=== PATIENT | male | born 1995 | race Caucasian/White ===

== ENCOUNTER 2016-05-05 14:48 | Emergency (ER) | payer SELFPAY ==
[~2016-05-05] VITALS: Ht 188 cm; Wt 81.1 kg
[2016-05-05 14:51] VITALS: TEMP 37; Ht 188 cm; Wt 81.1 kg
[2016-05-05] MEDS ORDERED: XYLOCAINE 1%/SOD BICARB 20 ML VIAL INFIL ONE (15:15)
--- NOTE | 2016-05-05 15:36 | DIAGNOSTIC IMAGING REPORT ---
RIGHT HAND 3 VIEWS CLINICAL HISTORY: Right hand injury involving the third and fourth fingers. FINDINGS: 3 views of the right hand are obtained. No prior studies are available for comparison at the time of dictation. The skeletal structures are well mineralized. No fracture is seen. The joint spaces of the hand are well-maintained. Mild dorsal soft tissue swelling is seen at the level of the metacarpal heads. IMPRESSION: Mild dorsal soft tissue swelling with no acute bony abnormality identified. Electronically signed by: Timothy Kahn M.D. 05/05/2016 3:35 PM Dictated Date/Time: 05/05/2016 3:33 PM
[2016-05-05] MEDS ORDERED: CEPH500C PO (16:14)
[2016-05-05] MEDS ORDERED: DIPHTHERIA/TETANUS/PERTUSSIS 0.5 ML SYR/VIAL IM. ONE (16:15)
[2016-05-05 16:39] VITALS: BP 118/72; PULSE 63; O2SAT 99
--- NOTE | 2016-05-05 17:10 | EMERGENCY ROOM VISIT NOTE ---
ED Visit Note First contact with patient: 15:04 Chief complaint: Right long finger laceration HPI: This 21-year-old white male presents for evaluation of lacerations of his right long finger. The patient was helping to connect a trailer hitch and got his hand caught between 2 pieces of metal. He states he was pinned there for almost a half an hour. They had to get a hacksaw to cut the metal to release his hand. Bleeding was controlled with pressure. He has pain in his long and ring fingers. Only the long finger has lacerations. They deny any numbness, tingling, or loss of motion. No other complaints. Tetanus is believed to be out of-date. Pain is 8/10. Right-hand dominant. Supplemental sheet was reviewed and signed. Previous surgeries: None Medical history: Significant for history of Lyme disease Current Medications: None Allergies: NKDA Tetanus: Greater than 9 years Family History: Significant for diabetes, hypertension, kidney stones, and seizures Social History: Unemployed. Lives with his father. Positive tobacco use, positive EtOH use. REVIEW OF SYSTEM: HEENT: No dizziness, visual problems, hearing loss, or tinnitus. There is no difficulty swallowing and no oral lesions are present. PULMONARY: No cough, shortness of breath, sputum production or hemoptysis. CARDIOVASCULAR: No chest pain, palpitations, shortness of breath or peripheral edema. GASTROINTESTINAL: No diarrhea, constipation, nausea, vomiting, or abdominal pain. GENITOURINARY: No dysuria, frequency, urgency or nocturia. NEUROLOGIC: No weakness, muscle tenderness, epilepsy or history of neurological problems. MUSCULOSKELETAL: No history of joint tenderness/swelling. No history of arthritis or arthralgias. SKIN: No rashes or lesions. PSYCHIATRIC: No history of depression or mental illness. ENDOCRINE: No history of diabetes, thyroid disorders, or abnormal hair growth. Physical Exam: Vitals: Afebrile. Reviewed and filed in patient's chart General: Well-developed, well-nourished, young white male, in no acute distress. Obvious discomfort. He is sitting on the bed. Alert and oriented. Skin: Warm and dry with good turgor. No rashes. Mild ecchymosis and erythema to the ring and long fingers. The patient is not diaphoretic. No abrasions. The patient has a 0.5 cm laceration present at the proximal phalanx flexor surface. There is a 2 cm laceration present at the DIP joint flexor surface. There is also a 1 cm laceration at the middle phalanx dorsal surface. He has superficial skin tears present on the dorsum of the index, long, and ring fingers. Musculoskeletal: Patient has no discomfort with palpation over his wrist or metacarpals. No pain with palpation over the thumb, index finger, or little finger. He has intact flexion and extension at the MCP, PIP, and DIP joints of each digit. FDS and FDP function are found to be intact through isolation of each digit. Neurologic: Gross sensation is intact across the digits by soft touch. Peripheral pulses are 2+ at the wrist. Data:Imaging obtained today of the right hand shows no evidence for fracture. These were reviewed by me and read by radiology. Impression: Right hand long finger lacerations 3.5 cm total with tendon exposure Procedure: Informed oral consent was obtained for repair. Right long finger was prepped with Betadine and draped with a sterile towel. Area was anesthetized using 4 mL 1% plain buffered lidocaine in a digital block. Thorough inspection was performed. Self-retaining retractor's were used to visualize the tendons. Wounds were irrigated copiously using normal sterile saline under jet spray lavage. Wounds were closed using 4-0 nylon. Excellent wound edge approximation was achieved. Hemostasis was achieved. Plan: Patient was educated regarding today's findings. Conservative care measures were discussed. Cleanse the wounds daily with soap and water and reapply a small amount of bacitracin. Ice and elevate intermittently as needed for discomfort. Tylenol and ibuprofen every 6 hours as needed for pain. Wound care handout was provided. Sutures out in 12 days. He may shower. Avoid soaking or swimming for two weeks. Return to the ER for any acute changes or signs of infection. He was placed in AlumaFoam splint in extension for protection for the next several days. He may remove it When bathing. He was reassured that I do not suspect joint violation, fracture, or tendon rupture. He'll need to watch the skin closely over the next few days due to the nature of the crush injury. Tetanus was updated using Adacel 0.5 mL IM. Prescription was provided for Keflex 500 mg 4 times a day 5 days as a prophylaxis against infection. Problem List Medical Problems: (1) Knee pain, left Status: Resolved (2) Left knee pain Status: Resolved Current/Historical Medications Scheduled Cephalexin Monohydrate (Keflex), 500 MG PO QID Allergies Coded Allergies: No Known Allergies (Unverified , UNKNOWN, 05/05/16) Vital Signs Date Time Temp Pulse Resp B/P Pulse Ox O2 Delivery O2 Flow Rate FiO2 05/05/16 16:39 63 18 118/72 99 05/05/16 14:51 37.0 80 18 129/80 100 Room Air Medications Administered Medications (Trade) Dose Ordered Sig/Missael Route Start Time Stop Time Status Last Admin Dose Admin Diphtheria/ Pertussis/Tetanus Vacc (Adacel Inj) 0.5 ml ONCE ONCE IM. 05/05/16 16:15 05/05/16 16:16 DC 05/05/16 16:25 0.5 ML Departure Information Impression Primary Impression: Laceration of right middle finger Dispostion Home / Self-Care Prescriptions Cephalexin Monohydrate (Keflex) 500 Mg Cap 500 MG PO QID, #20 CAP Prov: Gage Holt,P.A. 05/05/16 Forms HOME CARE DOCUMENTATION FORM, Days to leave dressing on : 1 Clean wound with;: soap and water Number of times/day to clean wound: 2 Coat wound with: antibiotic ointment Suture removal in how many days: 12 MOTRIN USE, TYLENOL USE, WOUND CARE INSTRUCTIONS, IMPORTANT VISIT INFORMATION Patient Instructions My [facility] Additional Instructions Cleanse the wound daily with soap and water Avoid swimming or soaking for 2 weeks you may shower and wash your hands Tylenol and Motrin every 6 hours as needed for discomfort Sutures out in 12 days Return to the ED for any acute changes or signs of infection Keflex one pill 4 times a day 5 days
== END 2016-05-05 16:39 | disposition home or self-care (01) ==
LOC: C.EDB 14:49 → C.EDD 16:39
DX: S61.213A Laceration without foreign body of left middle finger without damage to nail, initial encounter (principal); W23.0XXA Caught, crushed, jammed, or pinched between moving objects, initial encounter; F17.200 Nicotine dependence, unspecified, uncomplicated; Z23 Encounter for immunization

== ENCOUNTER 2016-05-21 19:05 | Emergency (ER) | payer OTHER ==
[~2016-05-21] VITALS: Ht 188 cm; Wt 78.9 kg
[~2016-05-21 19:05] MED LIST: CEPH500C PO
[2016-05-21 19:27] VITALS: BP 133/63; PULSE 67; TEMP 36.9; O2SAT 98; Ht 188 cm; Wt 78.9 kg
--- NOTE | 2016-05-21 19:54 | EMERGENCY ROOM VISIT NOTE ---
History First contact with patient: 19:41 Chief Complaint: SUTURE/STAPLE REMOVAL Stated Complaint: STITCHES REMOVAL Nursing Triage Summary: pt states he is here for suture removal to right middle finger History of Present Illness The patient is a 21 year old male who presents to the Emergency Room for suture removal from a right third finger laceration that was repaired in our facility 16 days ago. The patient denies any wound complications. He does report persistent paresthesias of the finger. He denies any dom numbness of the fingertip. This was a crush injury to the finger. Review of Systems Noncontributory Past Medical/Surgical History Medical Problems: (1) Knee pain, left (2) Left knee pain (3) No Known Active Medical Problems Social History Smoking Status: Never Smoker Alcohol Use: none Drug Use: none Marital Status: single Housing Status: lives with roommate Occupation Status: student Current/Historical Medications Scheduled Cephalexin Monohydrate (Keflex), 500 MG PO QID Allergies Coded Allergies: No Known Allergies (Unverified , UNKNOWN, 05/05/16) Physical Exam Vital Signs Date Time Temp Pulse Resp B/P Pulse Ox O2 Delivery O2 Flow Rate FiO2 05/21/16 19:27 36.9 67 18 133/63 98 Room Air Physical Exam MUSCULOSKELETAL: Examination of the right third finger shows well-healing lacerations without any wound diastases, erythema, fluctuance or drainage. All sutures were removed without any complications. Medical Decision & Procedures ED Course The patient was instructed to avoid any undue stress on the wounds. He was advised that the paresthesias should progressively improve over an extended period of time. He may certainly follow up with his PCP or orthopedics as needed for any further wound concerns. The patient was happy with plan care, and denied any pain at the time of discharge. Medical Decision Impression Primary Impression: Encounter for removal of sutures Additional Impressions: Right third finger lacerations Paresthesias of right third finger Departure Information Referrals No Doctor, Assigned (PCP) Patient Instructions My [facility] Problem Qualifiers
== END 2016-05-21 20:01 | disposition home or self-care (01) ==
LOC: C.EDB 19:06 → C.EDD 20:01
DX: Z48.02 Encounter for removal of sutures (principal); R20.8 Other disturbances of skin sensation

== ENCOUNTER 2017-03-11 12:50 | Emergency (ER) | payer OTHER ==
[~2017-03-11] VITALS: Ht 188 cm; Wt 80.2 kg
[2017-03-11 13:00] VITALS: TEMP 37; Ht 188 cm; Wt 80.2 kg
[2017-03-11] MEDS ORDERED: IBUPROFEN 600 MG TAB PO STA (13:35)
[2017-03-11] MEDS ORDERED: OXYCODONE HCL IR 5 MG TAB (IMMEDIATE RELEASE) PO STA (13:35)
--- NOTE | 2017-03-11 13:57 | DIAGNOSTIC IMAGING REPORT ---
L FINGER(S) MIN 2 VIEWS ROUTINE CLINICAL HISTORY: L 2nd digit pain, swelling, erythema pain. Edema. COMPARISON: None. DISCUSSION: The bones and joint spaces appear intact. There is no evidence of fracture, dislocation or bony disease. Moderate soft tissue edema primarily adjacent to the proximal interphalangeal joint. IMPRESSION: No acute bony abnormality. Nonspecific soft tissue edema. The above report was generated using voice recognition software. It may contain grammatical, syntax or spelling errors. Electronically signed by: Santos Saldana M.D. 03/11/2017 1:56 PM Dictated Date/Time: 03/11/2017 1:55 PM
--- NOTE | 2017-03-11 14:13 | EMERGENCY ROOM VISIT NOTE ---
History First contact with patient: 13:29 Chief Complaint: FINGER PAIN Stated Complaint: BROKEN INFECTED FINGER History of Present Illness The patient is a 21 year old male who presents to the Emergency Room via private vehicle with complaints of "broken infected finger". The patient states that a few days ago the lid from a tool box was accidentally shot and slammed onto the PIP joint of the left second digit. He noticed 2 days ago the redness began at the left second PIP joint. It is not painful. He believes there is a pocket of pus stuck underneath. He denies any fevers or chills. He rates the overall pain as a 0 at rest, but exquisite with movement and palpation. He notes some numbness in the left second digit. Review of Systems A complete 6-point Review of Systems was discussed with the patient, with pertinent positives and negatives listed in the History of Present Illness. All remaining Review of Systems questions can be considered negative unless otherwise specified. Past Medical/Surgical History Medical Problems: (1) Knee pain, left (2) Left knee pain (3) No Known Active Medical Problems Social History Smoking Status: Current Every Day Smoker Alcohol Use: none Drug Use: none Marital Status: single Housing Status: lives with roommate Occupation Status: student Current/Historical Medications Scheduled Cephalexin Monohydrate (Keflex), 500 MG PO QID Sulfa/Trimethoprim (Bactrim Ds 800MG/160MG), 1 TAB PO BID Scheduled PRN Oxycodone Ir (Roxicodone Ir), 1-2 TAB PO Q6H PRN for Pain Physical Exam Vital Signs Date Time Temp Pulse Resp B/P (MAP) Pulse Ox O2 Delivery O2 Flow Rate FiO2 03/11/17 14:45 76 20 133/78 99 03/11/17 13:00 37.0 62 18 124/74 98 Room Air Physical Exam VITAL SIGNS - Vital signs and nursing notes were reviewed. Stable. GENERAL -21-year-old male appearing his stated age who is in no acute distress. Communicates well with provider and answers questions appropriately. SKIN - there is a small amount of erythema surrounding the lateral aspect of the left second digit PIP joint. It does appear to be edematous in this region. There is no step-off deformity. With full extension of the left second digit at the location of the PIP joint there is some blanching of the skin. There is no fluctuance.. EXTREMITIES - excellent capillary refill of the left second digit. There is tenderness noted to the left second PIP joint. Full range of motion noted in this region. The patient fully extends this there is some blanching secondary to the amount of edema. No evidence of neurovascular compromise. No fluctuance. No evidence of underlying abscess. There is erythema noted to the left second digit PIP joint. Medical Decision & Procedures ER Provider Diagnostic Interpretation: L FINGER(S) MIN 2 VIEWS ROUTINE CLINICAL HISTORY: L 2nd digit pain, swelling, erythema pain. Edema. COMPARISON: None. DISCUSSION: The bones and joint spaces appear intact. There is no evidence of fracture, dislocation or bony disease. Moderate soft tissue edema primarily adjacent to the proximal interphalangeal joint. IMPRESSION: No acute bony abnormality. Nonspecific soft tissue edema. The above report was generated using voice recognition software. It may contain grammatical, syntax or spelling errors. Electronically signed by: Santos Saldana M.D. 03/11/2017 1:56 PM Dictated Date/Time: 03/11/2017 1:55 PM Medications Administered Medications (Trade) Dose Ordered Sig/Missael Route Start Time Stop Time Status Last Admin Dose Admin Oxycodone HCl (Roxicodone Immediate Rel Tab) 5 mg NOW STAT PO 03/11/17 13:35 03/11/17 13:37 DC 03/11/17 13:42 5 MG Ibuprofen (Motrin Tab) 600 mg NOW STAT PO 03/11/17 13:35 03/11/17 13:37 DC 03/11/17 13:42 600 MG Medical Decision Patient was seen and evaluated as above. He presents to us today with left second digit pain. There is question of overlying cellulitis to the area of trauma. I believe that his concern is that there could be a pocket of pus however believed that the white that he is seeing with full extension of the left second digit at the PIP joint on the volar aspect is rather blanching of the skin. You can see pulsation as the arterial supply is perfusing. Nonetheless, in the event that the patient is experiencing a small overlying cellulitis he will treated with Keflex and Bactrim. X-ray was obtained and reveals no fracture. Tetanus is up-to-date. He appears stable for outpatient management. He is nontoxic in appearance, well-appearing and is hemodynamically stable. He was educated upon management, educated upon worrisome symptoms which to return, had questions about discharge, and was discharged home in good condition. While here he was given oxycodone and ibuprofen for pain. Ice packs were applied. He will be given a short prescription of oxycodone for pain. No red flags identified and the [place] drug monitoring system. In the evaluation and treatment of this patient, the following differential diagnoses were considered: Finger Fracture, Finger Dislocation, Finger Sprain, Finger Contusion, [place] Finger, or Mallet Finger. Impression Primary Impression: Finger pain, left Additional Impression: Cellulitis Departure Information Dispostion Home / Self-Care Condition GOOD Prescriptions Oxycodone Ir (Roxicodone Ir) 5 Mg Tab 1-2 TAB PO Q6H Y for Pain, #15 TAB For Initial Treatment Prov: Olaf Mike PA-C 03/11/17 Sulfa/Trimethoprim (Bactrim Ds 800MG/160MG) Tab 1 TAB PO BID for 10 Days, #20 TAB Prov: Olaf Mike PA-C 03/11/17 Cephalexin Monohydrate (Keflex) 500 Mg Cap 500 MG PO QID for 10 Days, #40 CAP Prov: Olaf Mike PA-C 03/11/17 Referrals No Doctor, Assigned (PCP) Aaron Garcia MD Patient Instructions My [facility] Additional Instructions You have been treated in the Emergency Department for finger Pain. You have received pain medicine in the emergency department which impairs your ability to operate a vehicle. It is illegal for you to drive after receiving these medicines. You have been prescribed Oxy IR to be used for pain control. This is a narcotic medication. You cannot drive or consume alcohol while on this medicine. This medicine should only be used for pain that cannot be controlled with over-the- counter pain medicines. Keflex 500mg every 6 hours Bactrim every 12 hours For pain control, you can use the following [id number] medicines: - Regular strength (325mg/tab) Tylenol (acetaminophen) 2 tabs every 4-6 hours as needed. Do not exceed 12 tablets in a 24 hour period. Avoid taking more than 3 grams (3000 mg) of Tylenol per day. This includes any other sources of acetaminophen you may take on a regular basis. - Regular strength (200 mg/tab) Advil (ibuprofen) 1-2 tabs every 4-6 hours as needed. Do not exceed a dose of 3200 mg per day. If this is a recent injury (<24 hrs), ice can be applied to the area of pain for the first 3 days to help decrease pain and inflammation. You have been provided the number for an Orthopaedic Surgeon. You should call this number as soon as possible to establish a follow-up visit from today's Emergency Department visit. Keep the brace/splint in place until evaluated by Orthopedics. Return to the Emergency Department if your current symptoms worsen despite treatment course outlined above, or if you develop any of the following symptoms : intractable pain despite aforementioned treatment course or new onset of numbness or tingling of the fingers. Problem Qualifiers
[2017-03-11] MEDS ORDERED: CEPH500C PO (14:22)
[2017-03-11] MEDS ORDERED: SULF800T23 PO (14:22)
[2017-03-11] MEDS ORDERED: OXYC1TAB3 PO (14:24)
[2017-03-11 14:45] VITALS: BP 133/78; PULSE 76; O2SAT 99
== END 2017-03-11 14:47 | disposition home or self-care (01) ==
LOC: C.EDB 12:51 → C.EDD 14:47
DX: L03.012 Cellulitis of left finger (principal); W23.1XXA Caught, crushed, jammed, or pinched between stationary objects, initial encounter; F17.200 Nicotine dependence, unspecified, uncomplicated

== ENCOUNTER 2017-03-15 16:04 | Emergency (ER) | payer SELFPAY ==
[~2017-03-15] VITALS: Ht 188 cm; Wt 79.8 kg
[~2017-03-15 16:04] MED LIST changes: +OXYC1TAB3 PO; +SULF800T23 PO
[2017-03-15 16:16] VITALS: TEMP 37; Ht 188 cm; Wt 79.8 kg
[2017-03-15] MEDS ORDERED: XYLOCAINE 1%/SOD BICARB 20 ML VIAL INFIL ONE (17:00)
--- NOTE | 2017-03-15 17:02 | EMERGENCY ROOM VISIT NOTE ---
ED Visit Note First contact with patient: 17:01 This Patient was discussed with the physician Bo[place] Renter, Veronica Villalobos PA-C. The pertinent historical and physical exam findings were confirmed. I agree with the studies ordered and with the interpretations of these studies. I agree with the disposition and care plan.
--- NOTE | 2017-03-15 17:21 | DIAGNOSTIC IMAGING REPORT ---
L FINGER(S) MIN 2 VIEWS ROUTINE CLINICAL HISTORY: left index finger, infection, PIP trauma. Pain. COMPARISON: None. DISCUSSION: The bones and joint spaces appear intact. There is no evidence of fracture, dislocation or bony disease. Moderate generalized soft tissue edema no bony destructive process. IMPRESSION: Soft tissue edema. No acute bony abnormality. The above report was generated using voice recognition software. It may contain grammatical, syntax or spelling errors. Electronically signed by: Santos Saldana M.D. 03/15/2017 5:20 PM Dictated Date/Time: 03/15/2017 5:19 PM
--- NOTE | 2017-03-15 17:56 | EMERGENCY ROOM VISIT NOTE ---
History First contact with patient: 16:42 Chief Complaint: INFECTION Stated Complaint: INFECTED FINGER Nursing Triage Summary: Patient was seen last week and had a left index finger infection has been on abx and infection is getting worse. History of Present Illness The patient is a 21 year old male who presents to the Emergency Room with complaints of a worsening infection of the left index finger. The patient reports that he was seen here last week after a total box smashed his finger. He was placed on antibiotics but states symptoms seem to be getting worse. He reports there is a blister over the area of pain and it has been draining some puslike discharge. He has some swelling in the area of the blister but is able to fully move the finger. He denies any fevers. He rates the discomfort a 10/ 10. The pain is located over the joint of the finger and does not radiate anywhere. He denies any numbness or weakness. Review of Systems A complete 10 point review of systems was reviewed with the patient with pertinent positives and negatives as per history of present illness. All else were negative. Past Medical/Surgical History Medical Problems: (1) Knee pain, left (2) Left knee pain (3) No Known Active Medical Problems Social History Smoking Status: Never Smoker Alcohol Use: none Drug Use: none Marital Status: single Housing Status: lives with roommate Occupation Status: student Current/Historical Medications Scheduled Cephalexin Monohydrate (Keflex), 500 MG PO QID Sulfa/Trimethoprim (Bactrim Ds 800MG/160MG), 1 TAB PO BID Scheduled PRN Hydrocodone/Acetaminophen 5MG/325MG ([place] 5MG/325MG), 1-2 TABLET PO Q4H PRN for Pain Physical Exam Vital Signs Date Time Temp Pulse Resp B/P (MAP) Pulse Ox O2 Delivery O2 Flow Rate FiO2 03/15/17 18:35 85 16 112/70 95 03/15/17 16:16 37.0 74 16 140/81 96 Room Air Physical Exam VITALS: Vitals are noted on the nurse's note and reviewed by myself. Vital signs stable. GENERAL: This is a 21-year-old male, in no acute distress, nondiaphoretic, well- developed well-nourished. LEFT HAND: There is a blister located over the radial aspect of the left index finger which is mildly tender to palpation with underlying whitish fluid. There is mild erythema surrounding this. There is no erythema or swelling of the ulnar aspect of the joint. There is full range of motion of the finger. Capillary refill within 2 seconds. NEURO: Patient was alert and oriented to person place and time. Medical Decision & Procedures ER Provider Diagnostic Interpretation: L FINGER(S) MIN 2 VIEWS ROUTINE CLINICAL HISTORY: left index finger, infection, PIP trauma. Pain. COMPARISON: None. DISCUSSION: The bones and joint spaces appear intact. There is no evidence of fracture, dislocation or bony disease. Moderate generalized soft tissue edema no bony destructive process. IMPRESSION: Soft tissue edema. No acute bony abnormality. Procedure I examined the patient. Verbal consent was obtained to perform the procedure. A digital block was performed using 6 mL of 1% buffered lidocaine. After the finger was numb, the finger was scrubbed with Betadine and sterile drapes were placed. An 11 blade was used to incise the blister and pus was expressed. Debridement was performed. A culture was obtained. There is a small ulceration underlying the blister. The area was irrigated with sterile saline. The patient tolerated the procedure well. Dressing was applied. Medical Decision Differential diagnosis includes abscess, cellulitis, joint space infection, among others. The patient was evaluated as above. He appears to have a cellulitis and does have some purulent material under a superficial blister. Incision and drainage was performed and some of the tissue was debrided. Culture was obtained and is pending. Patient is currently on Keflex and Bactrim and continue this. I did speak with Dr. Serrano, the hand specialist for [facility], who agreed to see the patient in the office early next week. I do not feel that the patient has a joint space infection at this time, however there is concern for that and he was encouraged to return here if he has difficulty moving the finger or fevers. He was given a small prescription for pain medication. He verbalized understanding of my assessment and treatment plan and was discharged home in good condition. The patient was independently evaluated by Dr. Avelar, ED attending physician, who agreed with my assessment and treatment plan. [place] Drug Monitoring Program Search Results: patient reviewed within database, no issues identified Medication Reconcilliation Current Medication List: was personally reviewed by me Blood Pressure Screening Patient's blood pressure: Normal blood pressure Impression Primary Impression: Cellulitis of finger Departure Information Dispostion Home / Self-Care Condition GOOD Prescriptions Hydrocodone/Acetaminophen 5MG/325MG ([place] 5MG/325MG) Tab 1-2 TABLET PO Q4H Y for Pain, #10 TAB For Initial Treatment Prov: Veronica Villalobos PA-C 03/15/17 Referrals No Doctor, Assigned (PCP) Andres Serrano MD Patient Instructions My [facility] Additional Instructions Contacts Dr. Serrano's office first thing Saturday morning. He will be able to a few Saturday in [place] or Saturday in [place]. It is very important that you keep this follow-up appointment. You need the antibiotics were previously prescribed. Keep the wound clean and do dressing changes daily. If you have any worsening symptoms such as increasing redness, increasing swelling, fevers, or difficulty moving the joint, return to the emergency department immediately for evaluation. Problem Qualifiers Primary Impression: Cellulitis of finger Laterality: left Qualified Codes: L03.012 - Cellulitis of left finger
[2017-03-15] MEDS ORDERED: HYDR-5688 PO (18:18)
[2017-03-15 18:35] VITALS: BP 112/70; PULSE 85; O2SAT 95
--- NOTE | 2017-03-19 14:07 | Pharmacy Progress Note ---
ED Pharmacist Culture FollowUp Date of Service: Mar 19, 2017. Patient was sent home, instructed to continue prescriptions for keflex and bactrim, which should cover the MSSA growing from the patient's deep wound culture. I also faxed a copy of the results to the patients orthopedic doctor who prescribed the antibiotics (Dr. Serrano), to the confirmed number of . The nurse at Dr. Serraon's office stated they would evaluate the need for discontinuation of keflex as the patient is due to follow up with them.
== END 2017-03-15 18:35 | disposition home or self-care (01) ==
LOC: C.EDB 16:06 → C.EDD 18:35
DX: L03.012 Cellulitis of left finger (principal)

== ENCOUNTER 2017-04-22 15:18 | Emergency (ER) | payer SELFPAY ==
[~2017-04-22] VITALS: Ht 188 cm; Wt 79.2 kg
[~2017-04-22 15:18] MED LIST changes: -CEPH500C PO; +HYDR-5688 PO; -OXYC1TAB3 PO; -SULF800T23 PO
[2017-04-22 15:23] VITALS: TEMP 37.6; Ht 188 cm; Wt 79.2 kg
[2017-04-22] MEDS ORDERED: ACETAMINOPHEN 500 MG TAB PO STA (16:40)
[2017-04-22 17:11] LABS: BASO % 2.7 %; BASO ABS # 0.14 K/uL (0-0.2); EOS % 0.2 %; EOS ABS # 0.01 K/uL (0-0.5); HEMATOCRIT 42.1 % (42-52); HEMOGLOBIN 14.8 g/dL (14.0-18.0); IG# 0.01 K/uL (0.00-0.02); LYMPH % 35.2 %; MEAN CELL VOLUME 86.1 fL (80-100); MEAN CORPUSCULAR HEMOGLOBIN 30.3 pg (25-34); MEAN CORPUSCULAR HGB CONC 35.2 g/dl (32-36); MEAN PLATELET VOLUME 10.8 fL (7.4-10.4); MONO % 17.8 %; MONO ABS # 0.91 K/uL (0.11-0.59); NEUT % 43.9 %; NEUT ABS # 2.25 K/uL (1.4-6.5); PLATELET COUNT 136 K/uL (130-400); WHITE BLOOD COUNT 5.12 K/uL (4.8-10.8)
--- NOTE | 2017-04-22 17:18 | EMERGENCY ROOM VISIT NOTE ---
History First contact with patient: 16:19 Chief Complaint: NECK PAIN Stated Complaint: SWOLLEN LYMPH NODES,MAJOR HEADACHE History of Present Illness The patient is a 22 year old male who presents to the Emergency Room with complaints of sore throat and swollen lymph node in his neck. The patient reports that he has had a swollen lymph node on the right side of his neck for the past 1 week. The patient reports he has had a sore throat, headache and feels feverish. He states that the inside of his mouth is sensitive and it hurts to swallow. There is a large swollen lymph node on the right side of his neck which he states is slightly painful to touch. The patient reports that prior to the onset of the symptoms, he did fall and hurt his back. This has been improving, but he is unsure if this could be related to the small lymph node. Patient reports a hard time swallowing and sleeping due to the pain. He has been taking ibuprofen and vitamin C at home with no improvement of his symptoms. He denies any recent sick contacts. He denies pain/stiffness in the back of his neck, abdominal pain, nausea/vomiting, earaches, cough or shortness of breath. Review of Systems A complete 10 point review of systems was reviewed with the patient with pertinent positives and negatives as per history of present illness. All else were negative. Past Medical/Surgical History Medical Problems: (1) Knee pain, left (2) Left knee pain (3) No Known Active Medical Problems Social History Smoking Status: Current Every Day Smoker Alcohol Use: none Drug Use: none Marital Status: single Housing Status: lives with roommate Occupation Status: student Current/Historical Medications Scheduled Amoxicillin & Pot Clavulanate (Augmentin 875-125 mg), 1 TAB PO BID Physical Exam Vital Signs Date Time Temp Pulse Resp B/P (MAP) Pulse Ox O2 Delivery O2 Flow Rate FiO2 04/22/17 18:22 72 18 117/61 98 04/22/17 16:24 68 18 126/75 98 Room Air 04/22/17 15:23 37.6 88 20 121/69 99 Room Air Physical Exam VITALS: Vitals are noted on the nurse's note and reviewed by myself. Vital signs stable. GENERAL: This is a 22-year-old male, in no acute distress, nondiaphoretic, well- developed well-nourished. SKIN: The skin was without rashes. EARS: External auditory canals clear, tympanic membranes pearly you without erythema or effusion bilaterally. EYES: Pupils equal round and reactive to light and accommodation. NOSE: Patent, turbinates without inflammation or discharge. MOUTH: Mucous membranes moist. Tonsils are enlarged bilaterally with a mild amount of exudate. The posterior oropharynx is erythematous and inflamed appearing. NECK: Supple without nuchal rigidity. There is an enlarged, mobile and tender right anterior cervical lymph node measuring approximately 2 cm in diameter. There is a slightly enlarged, mobile right posterior cervical node. Otherwise no lymphadenopathy. No meningismus. HEART: Regular rate and rhythm without murmurs gallops or rubs. LUNGS: Clear to auscultation bilaterally without wheezes, rales or rhonchi. ABDOMEN: Soft, nontender to palpation. MUSCULOSKELETAL: There is no tenderness to palpation of the cervical, thoracic or lumbar spine. NEURO: Patient was alert and oriented to person place and time. Medical Decision & Procedures Laboratory Results 04/22/17 17:00 Red Blood Count 4.89, Mean Corpuscular Volume 86.1, Mean Corpuscular Hemoglobin 30.3, Mean Corpuscular Hemoglobin Concent 35.2, Mean Platelet Volume 10.8, Neutrophils (%) (Auto) 43.9, Lymphocytes (%) (Auto) 35.2, Monocytes (%) (Auto) 17.8, Eosinophils (%) (Auto) 0.2, Basophils (%) (Auto) 2.7, Neutrophils # (Auto ) 2.25, Lymphocytes # (Auto) 1.80, Monocytes # (Auto) 0.91, Eosinophils # (Auto ) 0.01, Basophils # (Auto) 0.14 04/22/17 17:00 Test 04/22/17 17:00 White Blood Count 5.12 K/uL (4.8-10.8) Red Blood Count 4.89 M/uL (4.7-6.1) Hemoglobin 14.8 g/dL (14.0-18.0) Hematocrit 42.1 % (42-52) Mean Corpuscular Volume 86.1 fL (80-100) Mean Corpuscular Hemoglobin 30.3 pg (25-34) Mean Corpuscular Hemoglobin Concent 35.2 g/dl (32-36) Platelet Count 136 K/uL (130-400) Mean Platelet Volume 10.8 fL (7.4-10.4) Neutrophils (%) (Auto) 43.9 % Lymphocytes (%) (Auto) 35.2 % Monocytes (%) (Auto) 17.8 % Eosinophils (%) (Auto) 0.2 % Basophils (%) (Auto) 2.7 % Neutrophils # (Auto) 2.25 K/uL (1.4-6.5) Lymphocytes # (Auto) 1.80 K/uL (1.2-3.4) Monocytes # (Auto) 0.91 K/uL (0.11-0.59) Eosinophils # (Auto) 0.01 K/uL (0-0.5) Basophils # (Auto) 0.14 K/uL (0-0.2) RDW Standard Deviation 41.0 fL (36.4-46.3) RDW Coefficient of Variation 13.0 % (11.5-14.5) Immature Granulocyte % (Auto) 0.2 % Immature Granulocyte # (Auto) 0.01 K/uL (0.00-0.02) Anion Gap 6.0 mmol/L (3-11) Est Creatinine Clear Calc Drug Dose 155.1 ml/min Estimated GFR () 143.7 Estimated GFR (Non- 124.0 BUN/Creatinine Ratio 10.1 (10-20) Calcium Level 8.9 mg/dl (8.5-10.1) Total Bilirubin 0.5 mg/dl (0.2-1) Aspartate Amino Transf (AST/SGOT) 36 U/L (15-37) Alanine Aminotransferase (ALT/SGPT) 50 U/L (12-78) Alkaline Phosphatase 96 U/L (45-117) Total Protein 7.5 gm/dl (6.4-8.2) Albumin 4.0 gm/dl (3.4-5.0) Globulin 3.5 gm/dl (2.5-4.0) Albumin/Globulin Ratio 1.1 (0.9-2) Monoscreen NEG (NEG) Influenza Type A Antigen Neg for Influ A (NEG) Influenza Type B Antigen Neg for Influ B (NEG) Medications Administered Medications (Trade) Dose Ordered Sig/Missael Route Start Time Stop Time Status Last Admin Dose Admin Acetaminophen (Tylenol Tab) 1,000 mg NOW STAT PO 04/22/17 16:40 04/22/17 16:42 DC 2/19/18 17:11 1,000 MG Medical Decision Differential diagnosis includes strep pharyngitis, mononucleosis, influenza, mumps, meningitis, sinusitis, pneumonia, viral illness, among others. The patient is a 22-year-old male who presents today complaining of sore throat and swollen lymph nodes. Labs revealed no leukocytosis, anemia or concerning electrolyte abnormalities. Monospot was negative. Rapid strep test was negative. However, with patient's symptoms I was highly suspicious of strep pharyngitis. He will be treated with Augmentin pending culture. Conservative treatment was discussed with the patient. He was treated with Tylenol in the ED. Based on the patient's presentation and work up, I feel the patient is stable for outpatient treatment. The patient was educated to return to the emergency department for any worsening of their current condition or new/concerning symptoms. He will follow up with his PCP. Medication Reconcilliation Current Medication List: was personally reviewed by me Blood Pressure Screening Patient's blood pressure: Normal blood pressure Impression Primary Impression: Pharyngitis Departure Information Dispostion Home / Self-Care Condition GOOD Prescriptions Amoxicillin & Pot Clavulanate (Augmentin 875-125 mg) 1 Tab Tab 1 TAB PO BID for 10 Days, #20 TAB Prov: Veronica Villalobos ., [place]ON[place] 04/22/17 Referrals No Doctor, Assigned (PCP) Patient Instructions My [facility] Additional Instructions You were seen in the emergency department for your sore throat. You were prescribed Augmentin to be taken twice daily as prescribed. This is an antibiotic. All antibiotics have the potential to cause diarrhea. Stop this medication and contact a medical provider if you were to develop any significant adverse side effects including: wheezing, shortness of breath, passing out, vomiting, or a diffuse rash. Always take antibiotics as directed and COMPLETE the ENTIRE course regardless of the improvement of your symptoms. For pain and fever control, you can use the following [id number] medicines (if >12 yo): - Regular strength (325mg/tab) Tylenol (acetaminophen) 2 tabs every 4-6 hours as needed. Do not exceed 12 tablets in a 24 hour period. Avoid taking more than 4 grams (4000 mg) of Tylenol per day. This includes any other sources of acetaminophen you may take on a regular basis. - Regular strength (200 mg/tab) Advil (ibuprofen) 1-2 tabs every 4-6 hours as needed. Do not exceed a dose of 3200 mg per day. - For best results, alternate dosing of Tylenol and Advil. In addition to your prescribed medications, you can also use the following home remedies: - Warm salt-water gargles 3 times per day can soothe your throat and help to fight infection. - Warm tea with honey can soothe your throat. Return to the emergency department if your symptoms persist or worsen over the next 2-3 days despite treatment course outlined above. Return to the emergency department if you develop the following symptoms of: inability to swallow solids , liquids, or drool; excessive wheezing or inability to catch your breath; or intractable fever or pain. Follow up with your primary care provider in 2-3 days from today's emergency department visit. Problem Qualifiers Primary Impression: Pharyngitis Pharyngitis/tonsillitis etiology: unspecified etiology Qualified Codes: J02.9 - Acute pharyngitis, unspecified
[2017-04-22 17:27] LABS: CALCIUM 8.9 mg/dl (8.5-10.1); CREATININE 0.83 mg/dl (0.60-1.40); POTASSIUM 3.6 mmol/L (3.5-5.1)
[2017-04-22 17:30] LABS: TOTAL PROTEIN 7.5 gm/dl (6.4-8.2)
[2017-04-22 17:40] LABS: INFLUENZA B ANTIGEN Neg for Influ B (NEG)
[2017-04-22] MEDS ORDERED: AMOX875T PO (18:21)
[2017-04-22 18:22] VITALS: BP 117/61; PULSE 72; O2SAT 98
== END 2017-04-22 18:32 | disposition home or self-care (01) ==
LOC: C.EDB 15:20 → C.EDC 18:32
DX: J02.9 Acute pharyngitis, unspecified (principal); F17.200 Nicotine dependence, unspecified, uncomplicated